=== PATIENT | female | born 1955 | race Caucasian/White ===

== ENCOUNTER 2022-03-19 11:15 | Emergency (ER) | payer OTHER ==
--- OUTSIDE RECORDS SUMMARY | 2022-03-19 11:19 | XMS REPORT | Continuity of Care Document ---
:1955 Author Organization [facility] t Address [address] [place] [address] Care Team Providers Name Role Phone Jose Dumont DO Primary Care Physician Jose Dumont DO Attending Clinician Arianna ALVAREZ, Hector Weathers Attending Clinician ALEX CARNEY Attending Clinician Unavailable Sejal Watson Attending Clinician Unavailable Physician, No Primary or Family Admitting Clinician Unavaila ble Payers Payer Name Policy Type Policy Number Effective Date Expiration Date S ource Problems Condition Condition Condition Status Onset Resolution Last Treating Co mments Source Name Details Category Date Date Treatment Clinician Date Essential Essential Disease Active 2019-0 [facility] hypertensi hypertensi 04-25 [facility] 00:[facility]: Hospita 00 l Hair loss Hair loss Disease Active 2020-0 Met [facility] 04-25 st 00:00: Hospita 00 l Liver Liver Disease Active 2020-0 [facility] transplant transplant 04-25 ed ed 00:00: Hospita 00 l Allergies, Adverse Reactions, Alerts Allergy Allergy Status Severity Reaction(s) Onset Inactive Treating Comm ents Source Name Type Date Date Clinician No Known DA Active U 2016-03 [facility] [place] [facility] 00:00: [address] No Known DA Active U 2016-03 [facility] [place] [facility] Family History Family Member Diagnosis Comments Start Date Stop Date Source Natural brother Diabetes [facility] Natural father Cancer [facility] Natural mother Hypertension [facility] Natural sister Diabetes [facility] Social History Social Habit Start Date Stop Date Quantity Comments Source History of Current smoker [facility] use [facility] Alcohol intake 2021-10-21 2021-10-21 Current drinker [facility] 00:00:00 00:00:00 of alcohol Hospital (finding) History [facility] 2020-04-07 2020-04-07 2 [facility] Alcohol Frequency 00:00:00 00:00:00 Hospita l History [facility] 2020-04-07 2020-04-07 1 [facility] Alcohol Std 00:00:00 00:00:00 Hospital Drinks History [facility] 2020-04-07 2020-04-07 1 [facility] Alcohol Binge 00:00:00 00:00:00 Hospital Tobacco use and 2019-04-25 2019-04-25 Smokeless tobacco [facility] exposure 00:00:00 00:00:00 non-user Hospital Alcohol Comment 2019-04-25 2019-04-25 a drink a couple Met cornelio 00:00:00 00:00:00 times/year Hospital Sex Assigned At [birth year] F [facility] 00:00:00 00:00:00 Hospital Smoking Status Start Date Stop Date Source Ex-smoker 2019-04-25 00:00:00 2019-04-25 00:00:00 [facility] Medications Ordered Filled Start Stop Current Ordering Indication Dosage Frequency Signature Comments Components Source Medication Medication Date Date Medication? Clinician (SIG) Name Name pantoprazol 2021-03 Yes TAKE 1 Meth yusef e 2-[address] (PROTONIX) 00:00: MOUTH Hospit a 40 MG EC 00 DAILY l tablet hydroCHLORO 2021-03 Yes TAKE 1 Meth yusef thiazide 1-[address] (HYDRODIURI 00:00: MOUTH Hospi ta L) 25 MG 00 DAILY l tablet cholecalcif Yes Take by [facility], [address] vitamin D3, 14:56: Hospit a 125 mcg 55 l (5,000 unit) tablet cycloSPORIN Yes 25mg Q.5D Take 25 mg [facility] E modified [address] (NEORAL) 25 14:56: (two) Hospi ta MG capsule 55 times a l day. multivitami Yes 1{tbl} QD Take 1 Me thodi n with 8-[address] minerals 14:56: mouth Hospita tablet 55 daily. l rOPINIRole Yes TAKE 1 [facility] di XL (REQUIP 6-[address] XL) 4 MG 24 00:00: MOUTH AT Ho spita hr tablet 00 NIGHT l atenoloL Yes TAKE 1 [facility] (TENORMIN) 5-[address] 50 MG 00:00: MOUTH Hospita tablet 00 DAILY l levothyroxi Yes TAKE 1 Meth yusef ne 5-[address] (SYNTHROID) 00:00: MOUTH Hospi ta 100 mcg 00 DAILY l tablet ramipriL Yes TAKE 1 [facility] (ALTACE) 10 5-[address] MG capsule 00:00: MOUTH Hospit a 00 DAILY l amLODIPine Yes TAKE 1 Metho di (NORVASC) 5 5-[address] mg tablet 00:00: MOUTH Hospita 00 DAILY l sodium,pota 0 Yes [id number] 1{bottl Q12H Take 1 [facility] ssium,mag 2-21 e} Bottle by st sulfates 00:00: mouth Hospita (Suprep 00 every 12 l Bowel Prep (twelve) Kit) hours. 17.5-3.13-1 Drink 1 .6 gram bottle as recon soln directed for dose 1 and 1 bottle as directed for dose 2. hydroCHLORO 2021- No TAKE 1 Met h[facility] thiazide 2-04 11-17 TABLET(25 st (HYDRODIURI 00:00: 00:00 MG) BY Hos dung L) 25 MG 00 :00 MOUTH l tablet DAILY hydroCHLORO 2021-2021- No 25mg QD Take 1 Met hodi thiazide 2-03 02-04 tablet (25 st (HYDRODIURI 00:00: 00:00 mg total) Hospita L) 25 MG 00 :00 by mouth l tablet daily. hydroCHLORO 2021- No 25mg QD Take 1 Met h[facility] thiazide 2-03 02-03 tablet (25 st (HYDRODIURI 00:00: 00:00 mg total) Hospita L) 25 MG 00 :00 by mouth l tablet daily. hydroCHLORO 2020-03- No 25mg QD Take 1 Met h[facility] thiazide 025 02-03 tablet (25 st (HYDRODIURI 00:00: 00:00 mg total) Hospita L) 25 MG 00 :00 by mouth l tablet daily. ramipriL 2021- No 20mg QD Take 2 Method i (ALTACE) 10 10-01- capsules st MG capsule 00:00: 00:00 (20 mg Hosp rosie 00 :00 total) by l mouth daily. rOPINIRole 2021- No TAKE 1 Meth yusef XL (REQUIP 09-24 06-[address] XL) 4 MG 24 00:00: 00:00 MOUTH AT H ospita hr tablet 00 :00 NIGHT l pantoprazol 2021- No TAKE 1 Met hodi e 7 12-[address] (PROTONIX) 00:00: 00:00 MOUTH Hospi ta 40 MG EC 00 :00 DAILY l tablet atenoloL 2021- No TAKE 1 Method i (TENORMIN) 6 05-[address] 50 MG 00:00: 00:00 MOUTH Hospita tablet 00 :00 DAILY l levothyroxi 2021- No TAKE 1 Met antoinei ne 6- 05-[address] (SYNTHROID) 00:00: 00:00 MOUTH Hosp rosie 100 mcg 00 :00 DAILY l tablet amLODIPine 2021- No TAKE 1 Meth yusef (NORVASC) 5 6- 05-[address] mg tablet 00:00: 00:00 MOUTH Hospit a 00 :00 DAILY l ramipriL 2021- No TAKE 1 Method i (ALTACE) 10 05-04-04 CAPSULE(10 s t MG capsule 00:00: 00:00 MG) BY Hosp rosie 00 :00 MOUTH l DAILY Immunizations Ordered Immunization Filled Immunization Date Status Commen ts Source Name Name Knowthena READY TO USE 2021-10-21 Completed [facility] COVID-19 MRNA 00:00:00 Hospital VACCINATION Pneumococcal 2021-04-14 Completed [facility] Conjugate 13-Valent 00:00:00 Hospi danny FLUZONE HIGH-DOSE PF 2021-04-14 Completed [facility]ist 00:00:00 [facility] PFIZER COVID-19 MRNA 2021-02-22 Completed [facility] VACCINATION 00:00:00 [facility] PFIZER COVID-19 MRNA 2020-05-25 Completed [facility] VACCINATION 00:00:00 [facility] PFIZER COVID-19 MRNA 2020-05-04 Completed [facility] odist VACCINATION 00:00:00 [facility] FLUCELVAX QUAD PF 2019-12-[address] 00:00:00 Hospital Pneumococcal 2007-10-02 Completed [facility] Polysaccharide 00:00:00 Hospital Vital Signs Vital Name Observation Time Observation Value Comments Source Systolic blood 2021-10-21 19:55:00 126 mm[Hg] [facility] pressure Diastolic blood 2021-10-21 19:55:00 75 mm[Hg] [facility] pressure Heart rate 2021-10-21 19:55:00 67 /min [facility] Respiratory rate 2021-10-21 19:55:00 16 /min [facility] Body height 2021-10-21 19:55:00 162.6 cm [facility] Body weight 2021-10-21 19:55:00 91.173 kg [facility] BMI 2021-10-21 19:55:00 34.50 kg/m2 [facility] Oxygen saturation in 2021-10-21 19:55:00 95 /min [facility] Arterial blood by Pulse oximetry Body temperature 2021-05-02 15:20:00 36.78 Marisol [facility] Procedures Procedure Date / Time Performing Clinician Source Performed COMPREHENSIVE METABOLIC 2021-04-14 17:45:00 [facility] PANEL CBC HEMOGRAM 2021-04-14 17:45:00 [facility] Ho juventinotal TSH WITH REFLEX TO FREE 2021-04-14 17:45:00 [facility] T4 LIPID PANEL 2021-04-14 17:45:00 [facility] Ho spital HEPATITIS C ANTIBODY 2021-04-14 17:45:00 [facility] Plan of Care Planned Activity Planned Date Details Comments Source Future Scheduled 2022-03-08 SHINGLES VACCINES (1 Met [facility] Test 07:15:05 of 2) [code = SHINGLES VACCINES (1 of 2)] Future Scheduled 2022-03-08 BREAST CANCER [facility] Test 07:15:05 SCREENING [code = BREAST CANCER SCREENING] Future Scheduled 2022-03-08 COLONOSCOPY SCREENING [facility] Test 07:15:05 [code = COLONOSCOPY SCREENING] Future Scheduled 2022-03-08 INFLUENZA VACCINE [facility] Test 07:15:05 [code = INFLUENZA VACCINE] Future Scheduled 2022-03-08 COVID-19 VACCINE (5 - [facility] Test 07:15:05 Booster for Pfizer series) [code = COVID-19 VACCINE (5 - Booster for Pfizer series)] Future Scheduled 2022-03-08 65+ PNEUMOCOCCAL [facility] Test 07:15:05 VACCINE (3 - PPSV23 if available, else PCV20) [code = 65+ PNEUMOCOCCAL VACCINE (3 - PPSV23 if available, else PCV20)] Encounters Start End Encounter Admission Attending Care Care Encounter Source Date/Time Date/Time Type Type Clinicians Facility Department ID 2022-03-06 2022-03-06 Refill Manuel, 1.2.840.1 [id number] [facility] 00:00:00 00:00:[address] 3.430.2.7 Hospit a .3.306913 l .8 2022-01-25 2022-01-25 Refill Manuel, 1.2.840.1 [id number] [facility] 00:00:00 00:00:[address] 3.430.2.7 Hospit a .3.025932 l .8 2021-10-21 2021-10-21 Office Manuel, 1.2.840.1 [id number] [facility] 15:00:00 15:21:27 Visit Jose 10731.1.[address] 3.430.2.7 Hospit a .3.625781 l .8 2021-10-21 2021-10-21 Outpatient [facility] [id number] [place] 00:00:00 00:00:[address] 2021-10-21 2021-10-21 Travel 1.2.840.1 1.2.677.973 [id number] [facility] 00:00:00 00:00:[address] 3.430.2.7 0.2.7.3.698 Ho spita .3.003225 084.8 l .8 2021-08-25 2021-08-25 Refill Manuel, 1.2.840.1 [id number] [facility] 00:00:00 00:00:[address] 3.430.2.7 Hospit a .3.278372 l .8 2021-08-02 2021-08-02 Refill Manuel, 1.2.840.1 [id number] [facility] 00:00:00 00:00:[address] 3.430.2.7 Hospit a .3.572494 l .8 2021-07-14 2021-07-14 Refill Manuel, 1.2.840.1 [id number] [facility] 00:00:00 00:00:[address] 3.430.2.7 Hospit a .3.577987 l .8 2021-07-12 2021-07-12 Refill Manuel, 1.2.840.1 [id number] [facility] 00:00:00 00:00:[address] 3.430.2.7 Hospit a .3.072366 l .8 2021-05-02 2021-05-02 Office Manuel, Jose 1.2.840.1 [id number] Methodi 09:30:00 09:47:49 Visit Beba Keller 73428.1.[address] 3.430.2.7 Hospit a .3.312454 l .8 2021-05-02 2021-05-02 Outpatient MANUEL, [facility] [id number] [place] 00:00:00 00:00:00 JOSE [address] 2021-05-02 2021-05-02 Travel 1.2.840.1 1.2.517.930 [id number] [facility] 00:00:00 00:00:[address] 3.430.2.7 0.2.7.3.698 Ho spita .3.393118 084.8 l .8 2021-04-29 2021-04-29 Travel 1.2.840.1 1.2.998.237 [id number] [facility] 00:00:00 00:00:[address] 3.430.2.7 0.2.7.3.698 Ho spita .3.400003 084.8 l .8 2021-04-14 2021-04-14 Office Manuel, 1.2.840.1 [id number] [facility] 11:15:00 12:03:14 Visit Jose 78085.1.[address] 3.430.2.7 Hospit a .3.410856 l .8 2021-04-14 2021-04-14 Outpatient [facility] [id number] [place] 00:00:00 00:00:[address] 2021-04-14 2021-04-14 Refill Manuel, 1.2.840.1 [id number] [facility] 00:00:00 00:00:[address] 3.430.2.7 Hospit a .3.702818 l .8 2021-04-14 2021-04-14 Travel 1.2.840.1 1.2.168.534 [id number] [facility] 00:00:00 00:00:[address] 3.430.2.7 0.2.7.3.698 Ho spita .3.975395 084.8 l .8 2021-03-29 2021-03-29 Refill Manuel, 1.2.840.1 [id number] [facility] 00:00:00 00:00:00 Jose 01305.1.1 371 3.430.2.7 Hospit a .3.812201 l .8 2021-02-22 2021-02-22 Outpatient [facility] [id number] [place] 00:00:00 00:00:[address] 2020-10-04 2020-10-04 Outpatient MANUEL, [facility] [id number] [place] 00:00:00 00:00:00 JOSE [address] 2020-09-28 2020-09-28 Outpatient [facility] [id number] [place] 00:00:00 00:00:[address] 2020-05-25 2020-05-25 Outpatient ANGELIKA, [facility] [id number] [place] 00:00:00 00:00:00 ALEX [address] 2020-05-04 2020-05-04 Outpatient [facility] [id number] [place] 00:00:00 00:00:[address] 2020-04-07 2020-04-07 Outpatient [facility] [id number] [place] 00:00:00 00:00:00 255 Method i 2019-12-22 2019-12-22 Outpatient MANUEL [facility] [id number] [place] 00:00:00 00:00:00 JOSE [address] 2019-04-09 2019-04-09 Outpatient Sejal Rich [facility] BH35 [id number] [facility] 12:00:00 12:00:00 [id number] [facility] Results Test Description Test Time Test Comments Results Result Comments Source Comprehensive metabolic panel 2021-04-15 20:55:00 Test Item Value Reference Range Interpretation Comme nts Glucose (test code = 165 mg/dL 65-99 H Fastin g reference 2345-7) interval For so meone without known d iabetes, a glucosevalue >1 25 mg/dL indicates that they may havediabetes an d this should be confi rmed with afollow-up test . BUN (test code = 3094-0) 20 mg/dL 7-25 Creatinine (test code = 1.28 mg/dL 0.50-0.99 H For patients >49 years of 2160-0) age, the refere nce limitfor Creati nine is approximately 1 3% higher for peopleident ified as -Jen n. EGFR Non-Afr. [place]ian See_Comment L [Aut omated message] The (test code = 2775) system [facility] generated this result tra nsmitted reference range : > OR = 60 mL/min/1.73m 2. The reference range was not used to interpr et this result as normal/abnormal . EGFR See_Comment L [Auto mated message] The (test code = 2774) system [facility] generated this result tra nsmitted reference range : > OR = 60 mL/min/1.73m 2. The reference range was not used to interpr et this result as normal/abnormal . BUN/creatinine ratio See_Comment [Autom ated message] The (test code = 3097-3) system which generated this result tra nsmitted reference range : 6 - 22 (calc). The ref erence range was not u sed to interpret this result as normal/abnormal . Sodium (test code = 138 mmol/L 233-005 0649-2) Potassium (test code = 3.9 mmol/L 3.5-5.3 2823-3) Chloride (test code = 104 mmol/L 98-110 2075-0) CO2 (test code = 2027-9) 26 mmol/L 20-32 Calcium (test code = 10.3 mg/dL 8.6-10.4 58351-7) Protein (test code = 6.7 g/dL 6.1-8.1 2885-2) Albumin, S (test code = 3.8 g/dL 3.6-5.1 1751-7) Globulin, total (test See_Comment [Auto mated message] The code = 24035-6) system which generated this result tra nsmitted reference range : 1.9 - 3.7 g/dL (calc) . The reference range was not used to interpr et this result as normal/abnormal . Albumin/globulin ratio See_Comment [Aut omated message] The (test code = 1759-0) system which generated this result tra nsmitted reference range : 1.0 - 2.5 (calc). The reference range was not u sed to interpret this result as normal/abnormal . Total bilirubin (test 0.8 mg/dL 0.2-1.2 code = 1975-2) Alkaline phosphatase 49 U/L 37-153 (test code = 6768-6) AST (test code = 1920-8) 21 U/L 10-35 ALT (test code = 1742-6) 13 U/L 6-29 RAC (test code = RAC) Performing Organization Information: Site ID: RGA Name: [facility] Address: [address] [place] [phone] Director: Braden Negron Lab Interpretation (test Abnormal code = 74467-0) [id number]:55[facility]00 Test Item Value Reference Range Interpretation Comments Cholesterol, total 179 mg/dL See_Comment [Automat ed (test code = 2093-3) message ] The system which generated this result transmitted reference range : <=200. The reference range was not used to interpret this result as normal/abnormal . HDL cholesterol 51 mg/dL See_Comment [Automated (test code = 2085-9) message ] The system which generated this result transmitted reference range : > OR = 50. The reference range was not used to interpret this result as normal/abnormal . Triglycerides (test 142 mg/dL See_Comment [Automa matilde code = 2571-8) message] The system which generated this result transmitted reference range : <=150. The reference range was not used to interpret this result as normal/abnormal . LDL cholesterol mg/dL (calc) H Reference ra nge: calculated (test <100 Desira ble code = 99015-6) range <100 m g/dL for primary prevention; <70 mg/dL for patients with C HD or diabetic patients with > or = 2 CHD risk factors. LDL-C is now calculated using the Vik-Liyah calculation, which is a validated novel method providin g better accuracy than the Friedewald equation in the estimation of LDL-C. Vik S S et al. EVA. 2013;310(19): 3515-9204 (http://educati on .[employer] .com/faq/YMP876 ) Cholesterol/HDL See_Comment [Automated ratio (test code = message] The 9830-1) system which generated this result transmitted reference range : <5.0 (calc). Th e reference range was not used to interpret this result as normal/abnormal . Non-HDL cholesterol See_Comment For symone ents with (test code = diabetes plus 1 31749-3) major ASCVD ris k factor, treatin g to a non-HDL-C goal of <100 mg/dL (LDL-C of <70 mg/dL) is considered a therapeutic option. [Automated message] The system which generated this result transmitted reference range : <130 mg/dL (calc). The reference range was not used to interpret this result as normal/abnormal . RAC (test code = Performing RAC) Organization Information: Site ID: RGA Name: [id number] Lab Address: [address] [place] [address] Director: Braden Negron Lab Interpretation Abnormal (test code = 27087-4) [facility] [id number] 20:55:00 Test Item Value Reference Range Interpretation Comments WBC (test code = See_Comment [Automated 5715-2) message] The system which generated this result transmit matilde reference range : 3.8 - 10.8 Thousand/uL. Th e reference range was not used to interpret this result as normal/abnormal . RBC (test code = See_Comment [Automated 987-8) message] The system which generated this result transmit matilde reference range : 3.80 - 5.10 Million/uL. The reference range was not used to interpret this result as normal/abnormal . HGB (test code = 14.1 g/dL 11.7-15.5 718-7) HCT (test code = 41.9 % 35.0-45.0 4544-3) MCV (test code = 93.5 fL 80.0-100.0 787-2) MCH (test code = 31.5 pg 27.0-33.0 785-6) MCHC (test code 33.7 g/dL 32.0-36.0 = 786-4) RDW (test code = 12.6 % 11.0-15.0 788-0) Platelet count See_Comment [Automated (test code = message] The 487-3) system which generated this result transmit matilde reference range : 140 - 400 Thousand/uL. Th e reference range was not used to interpret this result as normal/abnormal . MPV (test code = 12.2 fL 7.5-12.5 776-5) RAC (test code = Performing RAC) Organization Information: Site ID: KIRILL Name: [facility] Address: [address] [place] [phone] Director: [facility] [id number] 20:55:00 Test Item Value Reference Range Interpretation Comments Hepatitis C Ab NON-REACTIVE NON-REACTIVE (test code = 09966-1) Signal/cutoff See_Comment HCV antibody was (test code = non-reactive. 25417-0) There is no laboratory evidence of HCV infection. In m ost cases, no furth er action is required. However,if rece nt HCV exposure is suspected, a te st for HCV RNA(marcel t code 72281) is suggested. For additional information ple ase refer tohttp://educat ion .[employer]. [employer]/faq/YKS01o0 (Th is link is [place] provided for informational/e prem ational purpose s only.) [Automat ed message] The system which generated this result transmit matilde reference range : <=1.00. The reference range was not used to interpret this result as normal/abnormal . RAC (test code = Performing RAC) Organization Information: Site ID: [place] Name: [facility] Address: [address] [place] [phone] Director: [facility] reflex to [id number] 20:55:00 Test Item Value Reference Range Interpretation Comments TSH reflex to See_Comment [Automated FT4 (test code message] The system = 3016-3) which generated this result transmitted reference range : 0.40 - 4.50 mIU /L. The reference r karthikeyan was not used to interpret this result as normal/abnormal . RAC (test code Performing = RAC) Organization Information: Site ID: [place] Name: [facility] Address: [address] [place] [phone] Director: [facility]
[2022-03-19 12:00] LABS: Absolute Lymphocytes (CBC) 3.5 K/uL (0.7-4.9); Hematocrit 42.1 % (36.0-45.0); Lymphocytes % 38.9 % (15.3-44.8); MCV 92.5 fL (80-100); MPV 8.9 fL (7.6-11.3); RBC Red Blood Cell Count 4.55 M/uL (3.86-4.86)
[2022-03-19 12:10] LABS: Protime INR 0.95
[2022-03-19 12:13] LABS: Potassium 4.5 mmol/L (3.5-5.1)
--- NOTE | 2022-03-19 13:06 | RAD REPORT ---
EXAM DESCRIPTION: CT - Head Brain Wo Cont - 03/19/2022 12:38 pm CLINICAL HISTORY: decreased vision right eye Headache, drowsiness COMPARISON: No comparisons TECHNIQUE: All CT scans are performed using dose optimization technique as appropriate and may inclu de automated exposure control or mA/KV adjustment according to patient size. FINDINGS: No intracranial hemorrhage, hydrocephalus or extra-axial fluid collection.No areas of brai n edema or evidence of midline shift. The paranasal sinuses and right mastoid are clear. Mild left mastoid effusion. The calvarium is intac t. IMPRESSION: No acute intracranial abnormality.
--- NOTE | 2022-03-19 13:08 | RAD REPORT ---
EXAM DESCRIPTION: CT - Head angio - 03/19/2022 12:37 pm CLINICAL HISTORY: decreased vision right eye Headache, drowsiness COMPARISON: Head Brain Wo Cont dated 03/19/2022 TECHNIQUE: CT angiography of the head was performed with MIPs. All CT scans are performed using dose optimization technique as appropriate and may include automated exposure control or mA/KV adjustment according to patient size. FINDINGS: No evidence of aneurysm is detected. No flow-limiting stenosis or vascular malformation id entified. Antegrade flow is seen in the vertebral arteries. Left vertebral artery is dominant. The visualized dural venous sinuses are patent. IMPRESSION: No significant flow abnormality is detected.
--- NOTE | 2022-03-19 13:39 | ER ---
Nurse's Notes [facility] Name: Maureen Ballard Age: 66 yrs Sex: Female : 1955 Arrival Date: 03/19/2022 Time: 11:20 Bed 20 Private MD: Diagnosis: Other retinal detachments Presentation: 03/19 11:23 Chief complaint: Intermittent flashing lights in right eye, nausea, and dizziness that hb started 2 night ago, black ring in vision in right eye since yesterday. Coronavirus screen: At this time, the client does not indicate any symptoms associated with coronavirus-19. Ebola Screen: No symptoms or risks identified at this time. Initial Sepsis Screen: Does the patient meet any 2 criteria? No. Patient's initial sepsis screen is negative. Does the patient have a suspected source of infection? No. Patient's initial sepsis screen is negative. Risk Assessment: Do you want to hurt yourself or someone else? Patient reports no desire to harm self or others. Onset of symptoms was March 17, 2022. 11:23 Method Of Arrival: Ambulatory hb 11:23 Acuity: GINNY 3 hb Historical: - Allergies: 11:26 No Known Allergies; hb - Immunization history:: Adult Immunizations not up to date. - Family history:: not pertinent. - Social history:: Smoking status: unknown. - Hospitalizations: : No recent hospitalization is reported. Screenin:14 [facility] ED Fall Risk Assessment (Adult) History of falling in the last 3 months, kr3 including since admission No falls in past 3 months (0 pts) Confusion or Disorientation No (0 pts) Intoxicated or Sedated No (0 pts) Impaired Gait No (0 pts) Mobility Assist Device Used No (0 pt) Altered Elimination No (0 pt) Score/Fall Risk Level 0 - 2 = Low Risk. Abuse screen: Denies threats or abuse. Nutritional screening: No deficits noted. Tuberculosis screening: No symptoms or risk factors identified. Assessment: 11:54 General: Appears in no apparent distress. comfortable, Behavior is calm, cooperative, kr3 appropriate for age. Pain: Denies pain. Neuro: Level of Consciousness is awake, alert, obeys commands, Oriented to person, place, time, situation. Cardiovascular: Patient's skin is warm and dry. Respiratory: Airway is patent Respiratory effort is even, unlabored, Respiratory pattern is regular, symmetrical. GI: Reports nausea. GI: Abdomen is round non-distended. : No signs and/or symptoms were reported regarding the genitourinary system. EENT: Reports cough, floaters . Derm: No signs and/or symptoms reported regarding the dermatologic system. Musculoskeletal: Circulation, motion, and sensation intact. 12:02 Reassessment: Patient appears in no apparent distress at this time. Patient and/or kr3 family updated on plan of care and expected duration. Pain level reassessed. Patient is alert, oriented x 3, equal unlabored respirations, skin warm/dry/pink. 13:05 Reassessment: Patient appears in no apparent distress at this time. Patient and/or kr3 family updated on plan of care and expected duration. Pain level reassessed. Patient is alert, oriented x 3, equal unlabored respirations, skin warm/dry/pink. 14:12 Reassessment: Patient appears in no apparent distress at this time. Patient and/or kr3 family updated on plan of care and expected duration. Pain level reassessed. Patient is alert, oriented x 3, equal unlabored respirations, skin warm/dry/pink. Vital Signs: 11:23 BP 158 / 92; Pulse 67; Resp 16; Temp 98.3; Pulse Ox 100% on R/A; Weight 90.72 kg; hb Height 5 ft. 5 in. (165.10 cm); Pain 0/10; 11:56 BP 136 / 81; Pulse 62; Resp 18; Pulse Ox 98% on R/A; kr3 13:00 BP 131 / 89; Pulse 52; Resp 17; Pulse Ox 98% on R/A; kr3 14:12 BP 132 / 81; Pulse 59; Resp 18; Pulse Ox 98% on R/A; kr3 11:23 Body Mass Index 33.28 (90.72 kg, 165.10 cm) hb ED Course: 11:20 Patient arrived in ED. as 11:26 Triage completed. hb 11:26 Isa Flores, GURDEEP is Primary Nurse. kr3 11:26 Arm band placed on. hb 11:28 Buddy Ho MD is Attending Physician. rn 11:35 Bed in low position. Call light in reach. Side rails up X 1. kr3 11:54 CBC with Diff Sent. kr3 11:54 Basic Metabolic Panel Sent. kr3 11:54 PT-INR Sent. kr3 12:39 CT Head Angio In Process Unspecified. EDMS 12:40 CT Head Brain wo Cont In Process Unspecified. EDMS 13:21 CALLED TRANSFER CENTER WAS INFORMED THEY DO NOT TAKE RETINAL DETACHMENT CAES THEY HAVE kj1 NO OMPTHAMOLOGY. 14:14 Patient did not have IV access during this emergency room visit. kr3 14:15 Report given to Billy, with ambulance services. kr3 Administered Medications: No medications were administered Medication: 14:15 VIS not applicable for this client. kr3 Outcome: 13:38 ER care complete, transfer ordered by . rn 14:14 Transferred by ground EMS to [facility]. kr3 14:14 Condition: stable 14:14 Instructed on the need for transfer. 14:16 Patient left the ED. kr3 Signatures: Dispatcher [employer] Janiya Fernandez Roman, MD MD rn Baxter, Heather, Cuca Small RN kj1 Isa Flores RN RN kr3
--- NOTE | 2022-03-19 13:39 | EDPHYS ---
Physician Documentation [facility] Name: Maureen Ballard Age: 66 yrs Sex: Female : 1955 Arrival Date: 03/19/2022 Time: 11:20 Bed 20 Private MD: ED Physician Buddy Ho HPI: 03/19 12:28 This 66 yrs old Female presents to ER via Ambulatory with complaints of Eye Problem - rn floaters/flashes, Nausea/Vomiting. 12:28 The patient is experiencing decreased vision, floaters, The patient sustained None. to rn the right eye, caused by an unknown mechanism. Onset: The symptoms/episode began/occurred 2 day(s) ago. Duration: the symptoms are continuous. Aggravated by pressure, bending over. Associated signs and symptoms: Pertinent positives: None. Pertinent negatives: fever, headache, runny nose. Severity of symptoms: At their worst the symptoms were mild in the emergency department the symptoms are worse. The patient has not experienced similar symptoms in the past. The patient has not recently seen a physician. Pt reports started 2 days ago with right eye flashers and squiggly lines, seeing "ring of black" right lateral peripheral vision. States ring getting slightly larger today. Rest of vision is not blurry. No pain. No trauma. No other focal neuro complaint.. Historical: - Allergies: 11:26 No Known Allergies; hb - Immunization history:: Adult Immunizations not up to date. - Family history:: not pertinent. - Social history:: Smoking status: unknown. - Hospitalizations: : No recent hospitalization is reported. ROS: 12:28 Constitutional: Negative for fever, chills, and weight loss, Eyes: + right eye with rn diminished vision in periphery ENT: Negative for injury, pain, and discharge, Neck: Negative for injury, pain, and swelling, Neuro: Negative for headache, weakness, numbness, tingling, and seizure. Exam: 12:28 Constitutional: This is a well developed, well nourished patient who is awake, alert, rn and in no acute distress. Head/Face: Normocephalic, atraumatic. Eyes: Pupils equal round and reactive to light, extra-ocular motions intact. Lids and lashes normal. Conjunctiva and sclera are non-icteric and not injected. Cornea within normal limits. Periorbital areas with no swelling, redness, or edema. + area of absent vision right periphery, otherwise vision equal with glasses on. Skin: Warm, dry with normal turgor. Normal color with no rashes, no lesions, and no evidence of cellulitis. Neuro: Awake and alert, GCS 15, oriented to person, place, time, and situation. Cranial nerves II-XII grossly intact. Motor strength 5/5 in all extremities. Sensory grossly intact. Cerebellar exam normal. Normal gait. Vital Signs: 11:23 BP 158 / 92; Pulse 67; Resp 16; Temp 98.3; Pulse Ox 100% on R/A; Weight 90.72 kg; hb Height 5 ft. 5 in. (165.10 cm); Pain 0/10; 11:56 BP 136 / 81; Pulse 62; Resp 18; Pulse Ox 98% on R/A; kr3 13:00 BP 131 / 89; Pulse 52; Resp 17; Pulse Ox 98% on R/A; kr3 14:12 BP 132 / 81; Pulse 59; Resp 18; Pulse Ox 98% on R/A; kr3 11:23 Body Mass Index 33.28 (90.72 kg, 165.10 cm) hb MDM: 11:28 Patient medically screened. rn 13:36 Differential diagnosis: retinal detachment, vitreous hemorrhage, central retinal artery rn occlusion, central retinal vein occlusion, CVA. Data reviewed: vital signs, nurses notes, lab test result(s), radiologic studies, CT scan, and as a result, I will admit patient. Counseling: I had a detailed discussion with the patient and/or guardian regarding: the historical points, exam findings, and any diagnostic results supporting the discharge/admit diagnosis, lab results, radiology results, the need to transfer to another facility, [facility] does not immediately have the required specialist. ED course: Pt with neg CTA head, no occlusion or signs of vasculitis. Story most consistent with retinal detachment given floaters/flashers/peripheral defect in vision. No ophthalmology here, accepted for transfer to [facility] without doc-doc consultation.. 03/19 11:35 Order name: CBC with Diff; Complete Time: 12:25 rn 03/19 12:26 Interpretation: Within normal limits. rn 03/19 11:35 Order name: Basic Metabolic Panel; Complete Time: 12:25 rn 03/19 12:26 Interpretation: Normal except: GLUC 108; BUN 22; CRE 1.34. rn 03/19 11:35 Order name: PT-INR; Complete Time: 12:25 rn 03/19 12:26 Interpretation: Within normal limits. rn 03/19 11:35 Order name: Ptt, Activated; Complete Time: 12:25 rn 03/19 11:35 Order name: CT Head Angio; Complete Time: 13:08 rn 03/19 11:36 Order name: CT Head Brain wo Cont; Complete Time: 13:08 rn 03/19 11:35 Order name: IV Start; Complete Time: 11:54 rn Administered Medications: No medications were administered Disposition Summary: 03/19/22 13:38 Transfer Ordered Transfer Location: [facility] rn Reason: Higher level of care rn Condition: Stable rn Problem: new rn Symptoms: have worsened rn Accepting Physician: (03/19/22 14:16) sina Diagnosis - Other retinal detachments rn Forms: - Medication Reconciliation Form rn - SBAR form rn Signatures: Dispatcher [employer] EDBuddy Calderon MD MD rn Baxter, Heather, RN RN hb Reid, Kelley, RN RN [email or web address] Corrections: (The following items were deleted from the chart) 14:16 13:38 rn kr3
[2022-03-19 14:22] VITALS: TEMP 98.3
[2022-03-19 14:23] VITALS: O2SAT 98
[2022-03-19 14:25] VITALS: BP 132/81
== END 2022-03-19 14:16 | disposition short-term general hospital (02) ==
LOC: ER 11:15
DX: H33.8 Other retinal detachments (principal); R11.2 Nausea with vomiting, unspecified
CPT/HCPCS: 85025; 80048; 36415; 85610; 85730; 70450; 70496; 99285; Q9967

== ENCOUNTER 2024-01-24 07:55 | Day surgery (SDC) | payer OTHER ==
--- NOTE | 2024-01-23 09:41 | RAD REPORT ---
Procedure: Chest Pa And Lat (2 Views) HISTORY: Preop for aortogram. Hypertension COMPARISON: none FINDINGS: The lungs appear clear of acute infiltrate. No significant pleural effusion noted. The heart is normal size. IMPRESSION: No acute abnormality is displayed.
[2024-01-23 09:42] LABS: Absolute Basophils 0.1 K/uL (0-0.5); Absolute Eosinophils 0.2 K/uL (0-0.5); Absolute Lymphocytes (CBC) 3.4 K/uL (0.7-4.9); Absolute Monocytes 0.9 K/uL (0.1-1.3); Absolute Neutrophil 4.3 K/uL (1.8-8.0); Eosinophils % 2.3 % (0-4.4); Hematocrit 40.3 % (36.0-45.0); Hemoglobin 13.3 g/dL (12.0-15.0); Lymphocytes % 38.2 % (15.3-44.8); MCH 31.8 pg (27.0-35.0); MCHC 32.9 g/dL (32.0-36.0); MCV 96.6 fL (80-100); MPV 10.2 fL (7.6-11.3); Neutrophils % 48.5 % (41.7-73.7); Platelets 218 thou/uL (152-406); RBC Red Blood Cell Count 4.17 M/uL (3.86-4.86); Red Cell Distribution Width 13.7 % (12.1-15.2)
[2024-01-23 09:48] LABS: PT Prothrombin Time 10.8 SECONDS (9.4-12.5); PTT, Activated Partial Thromb 30.1 SECONDS (24.3-36.9); Protime INR 0.96
[2024-01-23 10:14] LABS: Anion Gap 5.4 mEq/L (5.0-15.0); Potassium 4.4 mEq/L (3.5-5.1)
[2024-01-24] MEDS ORDERED: NA CHLORIDE 0.9% 500 ML ONE (07:59)
[2024-01-24] MEDS ORDERED: HEPARIN 10,000 UNIT/10 ML VIAL IV ONE (09:58)
[2024-01-24] MEDS ORDERED: LIDOCAINE 1% 20 ML MDV ONE (09:58)
[2024-01-24] MEDS ORDERED: HEPA 1000U/500MLS 2,000 UNIT/1,000 ML BAG IV ONE (09:58)
[2024-01-24] MEDS ORDERED: MIDAZOLAM HCL 2 MG/2 ML INJ ONE (09:59)
[2024-01-24] MEDS ORDERED: ATROPINE SULF 1 MG/10 ML SYR IV ONE (09:59)
[2024-01-24] MEDS ORDERED: HEPARIN 5000 UNIT/ML 1 ML VIAL ONE (09:59)
[2024-01-24] MEDS ORDERED: FENTANYL CITR 100 MCG/2 ML ONE (09:59)
[2024-01-24] MEDS ORDERED: ACETAMINOPHEN 325 MG TABLET ONE (12:10)
[2024-01-24 13:45] VITALS: BP 150/73
[2024-01-24 13:46] VITALS: O2SAT 99
--- NOTE | 2024-01-24 19:30 | OP ---
Date of Procedure: 01/24/2024 Surgeon: Demar Lan Procedures Performed: 1.Lower abdominal aortogram. 2.Bilateral peripheral angiogram. Indication For Procedure: Claudication, abnormal ELLIE. Access: The left common femoral artery, closed by Mynx. Complications: None. Estimated Blood Loss: Less than 50 cc. Sedation Time: 30 minutes with 2 of Versed and 50 of fentanyl. Description Of Procedure: After risks, and benefits, and alternatives were explained to the patient, patient agreed to proceed with the procedure and signed informed consent. The patient was brought [facility] to the laborer shaft sinking, prepped and draped in sterile fashion. Time-out was performed. Sedation was ad ministered. Next, the left common femoral artery ultrasound-guided micropuncture technique was obtai anil and 5-Marshallese Omniflush catheter was advanced to the lower abdominal aorta. Lower abdominal aorto gram was done. That catheter was later exchanged for an IM catheter for the right lower extremity an giogram that was later pulled back over the J-wire and the left lower extremity angiogram was done ov er from the 5-Marshallese sheath. At the end of procedure, sheath was removed. Mynx was applied. Hemost asis was achieved and the patient was moved back to recovery in stable condition. Findings: 1.Lower abdominal aorta patent. 2.Right common iliac, external iliac, internal iliac, common femoral, SFA, popliteal are patent. 3.Right anterior tibial patent. 4.Right posterior tibial patent. 5.Right peroneal is occluded. 6.2-vessel runoff on the right side. 7.Left common iliac, internal iliac, external iliac, common femoral, SFA, popliteal, anterior tibial and posterior tibials are patent. 8.Left occluded peroneal artery. 9.2-vessel runoff on the left side. Assessment And Plan: Normal bilateral peripheral artery with the occluded bilateral peroneals. Konrad mmend aggressive medical management. HESS/MODL Voice ID: [id number] Report ID: [id number]
--- NOTE | 2024-01-28 17:39 | EKG ---
Test Date: 2024-01-23 Test Time: 10:21:54 Stock Preparation Operator: MARLEY MEASUREMENT RESULTS: Intervals: Rate: 58 VT: 190 QRSD: 84 QT: 414 QTc: 406 [place]: P: 59 VT: 190 QRS: 16 T: 70 INTERPRETIVE STATEMENTS: Sinus bradycardia Otherwise normal ECG No previous ECG available for comparison Electronically Signed On 01-28-24 17:25:20 HEALTH SAFETY COORDINATOR by Alvarez Crump
== END 2024-01-24 13:40 | disposition home or self-care (01) ==
LOC: CCL 07:55
PROVIDERS: ATTEND Internal Medicine Interventional Cardiology
DX: I70.223 Atherosclerosis of native arteries of extremities with rest pain, bilateral legs (principal); I13.0 Hypertensive heart and chronic kidney disease with heart failure and stage 1 through stage 4 chronic kidney disease, or unspecified chronic kidney disease; I50.32 Chronic diastolic (congestive) heart failure; N18.30 Chronic kidney disease, stage 3 unspecified; E78.5 Hyperlipidemia, unspecified; Z87.891 Personal history of nicotine dependence; Z79.899 Other long term (current) drug therapy
CPT/HCPCS: 36200; 36245; 36246; 36415; 71046; 75630; 76937; 80048; 85025; 85610; 85730; 93005; 99152; 99153; C1760; C1893; J0461; J1644; J2003; J2250; J3010; J7040